=== PATIENT | female | born 1990 | race Caucasian/White ===

== ENCOUNTER 2018-10-02 10:30 | Inpatient (IN) | payer OTHER ==
[2018-10-02] MEDS ORDERED: DEXTROSE 5%-LACTATED RINGERS 500 ML IV SCH ×2 (11:00→12:00)
[2018-10-02] MEDS ORDERED: ELECTROLYTE-148 SOLN 1,000 ML IV SCH (12:45)
--- NOTE | 2018-10-02 12:49 | HP ---
Past Medical History - Admission Chief Complaint: Uterine contractions History of Present Illness: 28yo @ 28.6wks here with uterine contractions q 2-3 mins No VB/LOF. +FM Preg uncomplicated. 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: Alzheimer's, CVA, Dementia, Migraine, Multiple Sclerosis, Peripheral Neuropathy, Parkinson's, Seizure, Syncope, TIA, Vertigo, Other Cardiovascular: No: AFIB, Aneurysm, Aortic Insufficiency, Aortic Stenosis, CAD, CHF, Deep Vein Thrombosis, HTN, Hyperlipdemia, AR, Mitral Insufficiency, Mitral Stenosis, Murmur, Pulmonary Hypertension, Other Pulmonary: No: Asthma, Bronchitis, Cancer, COPD, O2 Dependent, Pneumonia, Previously Intubated, Pulmonary Embolus, Pulmonary Fibrosis, Sleep Apnea, Other Gastrointestinal: No: Ascites, Cancer, Constipation, Crohn's Disease, Diverticulitis, Diverticulosis, Esophageal Varices, Gastritis, GERD, GI Bleed, Hemorrhoids, Hiatal Hernia, Inflamatory Bowel Disease, Irritable Bowel Disease, Pancreatitis, Peptic Ulcer Disease, Ulcerative Colitis, Other ...: 3 ...Para: 1 ...Term: 1 ...: 0 ...Spon : 0 ...Induced : 1 ...LMP: 01/03/18 ... Weeks Gestation by Dates: 38.6 ...EDC by Dates: 10/10/18 ...EDC by Sono: 10/09/18 - Past Surgical History Hx Myomectomy: No Hx Transabdominal Cerclage: No Additional Surgical History: Hemrrhoidectomy x 2 - Advance Directives Advance Directives: Yes: Living Will - Smoking History Smoking history: Never smoked Have you smoked in the past 12 months: No - Alcohol/Substance Use Hx Alcohol Use: No History of Substance Use: reports: None - Social History Usual Living Arrangement: Yes: With Spouse ADL: Independent Home Medications - Allergies Allergies/Adverse Reactions: Allergies Allergy/AdvReac Type Severity Reaction Status Date / Time No Known Allergies Allergy Verified 03/28/18 04:57 - Home Medications Home Medications: Ambulatory Orders NK [No Known Home Medication] 03/28/18 Physical Exam - Maternity Vital Signs: Vital Signs Temperature 98.1 F 10/02/18 11:32 Pulse Rate 121 H 10/02/18 11:32 Respiratory Rate 20 10/02/18 11:32 Blood Pressure 134/90 10/02/18 11:32 O2 Sat by Pulse Oximetry (%) Assessment/Plan 28yo @ 38.6wks here in labor. Initially presented and was 1-2cm, after 1 hour of ambulation, now 4-5cm Admit to L&D Ice chips, IVFs Cat I tracing Labs ordered Discussed epidural or stadol x 1 for pain, pt requested epidural AROM after comfortable, pitocin prn Anticipate Barbi Ryan MD
[2018-10-02 13:04] LABS: BASO % 0.7 % (0-2.0); EOS % 0.7 % (0-4.5); HEMOGLOBIN 12.5 GM/dL (10.7-15.3); LYMPH % 16.8 % (8-40); MCH 30.8 pg (25.7-33.7); MCHC 34.6 g/dl (32.0-36.0); MEAN CELL VOLUME 88.8 fl (80-96); MEAN PLT VOLUME 9.3 fl (7.5-11.1); MONO % 8.9 % (3.8-10.2); NEUT % 72.9 % (42.8-82.8); PLATELET COUNT 273 K/MM3 (134-434); RBC 4.06 M/mm3 (3.60-5.2); RDW 13.9 % (11.6-15.6); WHITE BLOOD COUNT 13.9 K/mm3 (4.0-10.0)
[2018-10-02 13:11] VITALS: BMI 32.9
[2018-10-02 13:35] LABS: ANION GAP 8 MMOL/L (8-16); BLOOD UREA NITROGEN 5 mg/dL (7-18); CALCIUM 8.9 mg/dL (8.5-10.1); CHLORIDE 105 mmol/L (98-107); CO2 22 mmol/L (21-32); CREATININE 0.6 mg/dL (0.55-1.3); GLUCOSE,RANDOM 93 mg/dL (74-106); POTASSIUM 3.9 mmol/L (3.5-5.1); SODIUM 135 mmol/L (136-145)
[2018-10-02] MEDS ORDERED: BUTORPHANOL TARTRATE 1 MG/ML VIAL IVPB ONE (13:39)
--- NOTE | 2018-10-02 13:39 | PN ---
Progress Note, Labor Vaginal Exam #1 Labor Exam Date: 10/02/18 Labor Exam Time: 13:38 Heart Rate (range): Cat I Dilatation: 6 Effacement (%): 100 Amniotic Membrane Status: Intact Presentation: Vertex/Position Station: -2 Remarks: More uncomfortable with ctx. Still intact Awaiting epidural, however anesthesia currently in the OR Discussed stadol x 1 now, pt amenable
[2018-10-02] MEDS ORDERED: PROMETHAZINE HCL 25 MG/1 ML VIAL IVPB ONE (13:40)
[2018-10-02 13:53] LABS: INR 0.96 (0.83-1.09); PROTHROMBIN TIME (PATIENT) 11.3 SEC (9.7-13.0)
[2018-10-02 13:56] LABS: ACTIVATED PTT 27.4 SECONDS (25.2-36.5)
--- NOTE | 2018-10-02 14:06 | PN ---
Progress Note, Labor Vaginal Exam #2 Labor Exam Date: 10/02/18 Labor Exam Time: 14:05 Heart Rate (range): Cat I Dilatation: 6 Effacement (%): 80 Amniotic Membrane Status: Ruptured Presentation: Vertex/Position Station: -2 Remarks: Pt comfortable s/p stadol AROM, clears Anticipate
[2018-10-02] MEDS ORDERED: OXYTOCIN 20 UNITS in 0.9% NS 20 UNIT/1,000 ML INFUS.BAG IV ONE (14:10)
[2018-10-02] MEDS ORDERED: NALOXONE HCL 0.4 MG/ML VIAL IVPUSH PRN (14:12)
[2018-10-02] MEDS ORDERED: FENTANYL/BUPIVACAINE/NS/PF - PCEA - 50 ML DISP.SYRIN EP SCH (14:15)
--- NOTE | 2018-10-02 15:07 | PN ---
Progress Note, Labor Vaginal Exam #3 Labor Exam Date: 10/02/18 Labor Exam Time: 14:55 Heart Rate (range): Cat I Dilatation: 8-9 Effacement (%): 100 Amniotic Membrane Status: Ruptured Presentation: Vertex/Position Station: 0 Remarks: Pt complaining of increased pain and some pressure Now 8-9cm Anticipate soon
[2018-10-02] MEDS ORDERED: METHYLERGONOVINE MALEATE 0.2 MG/1 ML AMP IM PRN (15:36)
[2018-10-02] MEDS ORDERED: WITCH HAZEL 50% (TUCKS) 40 PAD/JAR PAD TP PRN ×2 (15:36→15:40)
[2018-10-02] MEDS ORDERED: BENZOCAINE 28 GM HEMORRHOIDAL OINTMENT TP PRN (15:36)
[2018-10-02] MEDS ORDERED: BENZOCAINE 20% 57 GM BOTTLE TP PRN (15:36)
--- NOTE | 2018-10-02 15:37 | PN ---
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 39week gestation. No anesthesia. Spontaneous delivery of anterior shoulder. Infant placed on maternal abdomen. Cord clamped and cut after 2 minutes. Apgars 9/9. Weight pending. Spontaneous delivery of intact placenta with 3VC. Fundus firm. EBL 200ml. Mother and baby doing well. Barbi Ryan MD
[2018-10-02] MEDS ORDERED: PHENYLEPHRINE 0.25%/STARCH 1 EACH SUPP.RECT RC PRN (15:38)
[2018-10-02] MEDS ORDERED: ACETAMINOPHEN 325 MG TABLET (FP) ONE (15:43)
[2018-10-02] MEDS ORDERED: IBUPROFEN 600 MG TABLET (FP) PO ONE (15:43)
[2018-10-02] MEDS: ACETAMINOPHEN 325 MG TABLET (FP) PO PRN ×2 (15:45→20:04)
[2018-10-02] MEDS: IBUPROFEN 600 MG TABLET (FP) PO PRN ×3 (15:45→23:37)
[2018-10-02] MEDS ORDERED: OXYTOCIN 20 UNITS in 0.9% NS 20 UNIT/1,000 ML INFUS.BAG IV SCH (15:45)
[2018-10-02] MEDS: HYDROCORTISONE 2.5% TOPICAL CREAM 30 GM TUBE PR PRN ×2 (18:05→20:00)
[2018-10-02] MEDS: SENNOSIDES/DOCUSATE COMBO (SENNA PLUS) TABLET (UD) PO PRN (20:05)
[2018-10-03] MEDS: IBUPROFEN 600 MG TABLET (FP) PO PRN ×3 (04:17→16:13)
[2018-10-03] MEDS: ACETAMINOPHEN 325 MG TABLET (FP) PO PRN (04:17)
[2018-10-03 08:29] LABS: BASO % 0.4 % (0-2.0); EOS % 0.8 % (0-4.5); HEMOGLOBIN 11.2 GM/dL (10.7-15.3); LYMPH % 24.6 % (8-40); MCH 30.9 pg (25.7-33.7); MCHC 34.8 g/dl (32.0-36.0); MEAN CELL VOLUME 88.8 fl (80-96); MEAN PLT VOLUME 9.5 fl (7.5-11.1); MONO % 9.2 % (3.8-10.2); PLATELET COUNT 243 K/MM3 (134-434); RBC 3.61 M/mm3 (3.60-5.2); RDW 13.8 % (11.6-15.6); WHITE BLOOD COUNT 13.3 K/mm3 (4.0-10.0)
[2018-10-03] MEDS: PRENATAL VITAMINS W/ FOLIC ACID TABLET (FP) PO SCH ×2 (08:48→11:59)
--- NOTE | 2018-10-03 09:27 | PN ---
Post Progress Note - Subjective Subjective: No acute events o/n. C/O hemorrhoid pain still. Taking Motrin q4 hrs Type of Delivery: Vital Signs: Vital Signs Temperature 97.8 F 10/03/18 06:00 Pulse Rate 90 10/03/18 06:00 Respiratory Rate 18 10/03/18 06:00 Blood Pressure 127/75 10/03/18 06:00 O2 Sat by Pulse Oximetry (%) 100 10/02/18 16:36 Incision: Yes: Dressing dry and intact Abdomen/GI: Yes: Abdomen soft Lochia, amount: Small Extremities: Yes: Calves non-tender Perineum: Yes: Intact Activity: Ambulating - Labs Labs: CBC WBC 13.3 K/mm3 (4.0-10.0) H 10/03/18 06:30 RBC 3.61 M/mm3 (3.60-5.2) 10/03/18 06:30 Hgb 11.2 GM/dL (10.7-15.3) 10/03/18 06:30 Hct 32.0 % (32.4-45.2) L 10/03/18 06:30 MCV 88.8 fl (80-96) 10/03/18 06:30 MCH 30.9 pg (25.7-33.7) 10/03/18 06:30 MCHC 34.8 g/dl (32.0-36.0) 10/03/18 06:30 RDW 13.8 % (11.6-15.6) 10/03/18 06:30 Plt Count 243 K/MM3 (134-434) 10/03/18 06:30 MPV 9.5 fl (7.5-11.1) 10/03/18 06:30 Absolute Neuts (auto) 8.7 K/mm3 (1.5-8.0) H 10/03/18 06:30 Neutrophils % 65.0 % (42.8-82.8) 10/03/18 06:30 Lymphocytes % 24.6 % (8-40) D 10/03/18 06:30 Monocytes % 9.2 % (3.8-10.2) 10/03/18 06:30 Eosinophils % 0.8 % (0-4.5) 10/03/18 06:30 Basophils % 0.4 % (0-2.0) 10/03/18 06:30 Nucleated RBC % 0 % (0-0) 10/03/18 06:30 Assessment/Plan 28yo s/p , PPD#1 Routine PP care OOB ambulate Discussed decreasing meds to prn Continue meds for hemrrhoids, will likely need surgical intervention again in future if peristent D/C to home on PPD#2 Barbi Ryan MD
[2018-10-03] MEDS: SENNOSIDES/DOCUSATE COMBO (SENNA PLUS) TABLET (UD) PO PRN (22:15)
[2018-10-03 22:52] VITALS: TEMP 98.2
[2018-10-04] MEDS: IBUPROFEN 600 MG TABLET (FP) PO PRN (01:18)
[2018-10-04] MEDS: ACETAMINOPHEN 325 MG TABLET (FP) PO PRN (01:18)
[2018-10-04 07:59] VITALS: BP 122/81; PULSE 82
--- NOTE | 2018-10-04 08:15 | DS ---
Physical Exam-[employer] [facility] Vital Signs: Vital Signs Temperature 98.2 F 10/04/18 07:15 Pulse Rate 82 10/04/18 07:15 Respiratory Rate 18 10/04/18 07:15 Blood Pressure 122/81 10/04/18 07:15 O2 Sat by Pulse Oximetry (%) 100 10/02/18 16:36 Constitutional: Yes: Well Nourished Eyes: Yes: Conjunctiva Clear HENT: Yes: Atraumatic Neck: Yes: Supple Cardiovascular: Yes: Regular Rate and Rhythm Respiratory: Yes: Regular Gastrointestinal: Yes: Normal Bowel Sounds ...Rectal Exam: Yes: WNL Renal/: Yes: WNL Pelvis: Yes: WNL External Genitalia: Yes: Normal Vaginal Exam: Yes: Normal Cervix: Yes: Normal Uterus: Yes: Firm ....Post : Yes: Uterus firm Breast(s): Yes: WNL Musculoskeletal: Yes: WNL Extremities: Yes: WNL Neurological: Yes: Alert, Oriented ...Motor Strength: WNL Psychiatric: Yes: Alert, Oriented Labs: CBC, BMP 10/03/18 06:30 10/02/18 12:40 Delivery - Delivery Vaginal Delivery: Spontaneous Type of Anesthesia: None Episiotomy/Laceration: None EBL (cc): 200 Delivery, Single - Stages of Labor Date 1st Stage Initiatied: 10/02/18 Time 1st Stage Initiated: 05:00 Date 2nd Stage Initiated: 10/02/18 Time 2nd Stage Initiated: 15:14 Date of Delivery: 10/02/18 Time of Delivery: 15:24 Time Placenta Delivered: 15:30 Placenta: Yes: Spontaneous - Condition of Infant Rn Telemetry/Lead Scientist Present: No Gender: Male Weight: 7 lb Position: Left, OA Total Hours ROM (Hrs/Mins): 1HR 30MIN - 5 Minutes Total Score: 9 1 Minute Total Score: 9 - Feeding Plan Initial Plan: Elected not to breastfeed exclusively throughout hospitalization Discharge Summary Reason For Visit: LABOR Procedures: Principal: Normal spontaneous vaginal delivery Hospital Course: Routine care Condition: Good - Instructions Diet, Activity, Other Instructions: Regular diet If fever, pain, or heavy bleeding, call M.D. Call [facility] and make appt. to be seen in 4 to 6 weeks. [phone] Referrals: Barbi Ryan MD [Staff Physician] - Disposition: HOME - Home Medications Comprehensive Discharge Medication List: Ambulatory Orders Docusate Sodium [Colace] 100 mg PO BID 10/02/18 Ferrous Sulfate [Feosol] 325 mg PO DAILY 10/02/18 Pnv No.95/Ferrous Fum/Folic AC [ Vitamin Tablet] 1 each PO DAILY Hydrocortisone 2.5% Topical Cr [Anusol 2.5% Hc Cream -] 1 applic RC BID #1 tube 10/03/18 Ibuprofen 600 mg PO Q6H PRN #30 tablet 10/03/18
[2018-10-04] MEDS: PRENATAL VITAMINS W/ FOLIC ACID TABLET (FP) PO SCH (09:04)
[2018-10-04] MEDS ORDERED: DIPHTH,PERTUSS(ACELL),TET 0.5 ML DISP.SYRIN IM ONE (10:00)
== END 2018-10-04 13:15 | disposition home or self-care (01) | DRG 560 ==
LOC: JDEL 10:30 → JLDR 12:30 → J3W 16:51
PROVIDERS: ADMIT Obstetrics & Gynecology; ATTEND Obstetrics & Gynecology
PROC: 10E0XZZ Delivery of Products of Conception, External Approach (ICD-10-PCS; principal; 2018-10-02)
DX: O80 Encounter for full-term uncomplicated delivery (principal); Z3A.39 39 weeks gestation of pregnancy; Z37.0 Single live birth
CPT/HCPCS: 36415; 59025; 59409; 80048; 85025; 85610; 85730; 86593; 86850; 86900; 86901; 90715

== ENCOUNTER 2018-11-03 19:15 | Emergency (ER) | payer OTHER ==
--- NOTE | 2018-11-03 19:38 | PDOC ---
Rapid Medical Evaluation Chief Complaint: Vaginal Bleeding Medical Evaluation: Allergies Allergy/AdvReac Type Severity Reaction Status Date / Time No Known Allergies Allergy Verified 10/02/18 15:44 11/03/18 19:32 I have performed a brief in-person evaluation of this patient. The patient presents with a chief complaint of:post 1 month ago , stopped bleeding then after 8days has restarted vag bleeding 4 days ago with now chaNGING pads every hour. Now feels headache, weakness. Discussed with [employer] 2 days ago. no changes. Pertinent physical exam findings: pale, abd soft I have ordered the following: CBC, CMP, UA The patient will proceed to the ED for further evaluation. Discharge Disposition - Diagnosis Vagina bleeding - Referrals - Patient Instructions - Post Discharge Activity
[2018-11-03 19:39] VITALS: BMI 28.6
--- NOTE | 2018-11-03 21:00 | PDOC ---
History of Present Illness - General Chief Complaint: Vaginal Bleeding Stated Complaint: HEAVY BLEEDING SINCE [place] 4 Time Seen by Provider: 11/03/18 20:51 - History of Present Illness Initial Comments: 11/03/18 20:55 28 yo F with recent vaginal delivery (10/05/18) 39 wga, who p/w vaginal bleeding. Patient reports ongoing vaginal bleeding, with absent clotting beginning 10/31/18. Bleeding progressively increased in quantity. Now reports pad changes every 2 hours, with blood soaked pads. Patient [place] [address] Patient denies vision change, palpitations, cough, wheezing, N/V, F,C, CP, SOB, urinary complaints, abdominal pain, pelvic pain, vaginal discharge/irritation, diarrhea, constipation, BPR, hematuria, lightheadedness, weakness, sensory changes. 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 Sexually active with spouse. Allergies: NKDA Past History - Past Medical History Allergies/Adverse Reactions: Allergies Allergy/AdvReac Type Severity Reaction Status Date / Time No Known Allergies Allergy Verified 10/02/18 15:44 Home Medications: Ambulatory Orders Docusate Sodium [Colace] 100 mg PO BID 10/02/18 Ferrous Sulfate [Feosol] 325 mg PO DAILY 10/02/18 Pnv No.95/Ferrous Fum/Folic AC [ Vitamin Tablet] 1 each PO DAILY Hydrocortisone 2.5% Topical Cr [Anusol 2.5% Hc Cream -] 1 applic RC BID #1 tube 10/03/18 Ibuprofen 600 mg PO Q6H PRN #30 tablet 10/03/18 Asthma: No Cancer: No Cardiac Disorders: No Diabetes: No HTN: No Seizures: No Thyroid Disease: No - Suicide/Smoking/Psychosocial Hx Smoking History: Never smoked Have you smoked in the past 12 months: No Hx Alcohol Use: No Drug/Substance Use Hx: No Hx Substance Use Treatment: No Review of Systems - Review of Systems Comments:: 11/03/18 20:59 GENERAL/CONSTITUTIONAL: No fever or chills. No weakness. HEAD, EYES, EARS, NOSE AND THROAT: No change in vision. No ear pain or discharge. No sore throat. CARDIOVASCULAR: No chest pain or shortness of breath RESPIRATORY: No cough, wheezing, or hemoptysis. GASTROINTESTINAL: No nausea, vomiting, diarrhea or constipation. GENITOURINARY: No dysuria, frequency, or change in urination. MUSCULOSKELETAL: No joint or muscle swelling or pain. No neck or back pain. SKIN: No rash NEUROLOGIC: No headache, vertigo, loss of consciousness, or change in strength/ sensation. ENDOCRINE: No increased thirst. No abnormal weight change HEMATOLOGIC/LYMPHATIC: No anemia, easy bleeding, or history of blood clots. ALLERGIC/IMMUNOLOGIC: No hives or skin allergy. *Physical Exam - Vital Signs Last Vital Signs Temp Pulse Resp BP Pulse Ox 98.1 F 67 20 126/77 98 11/03/18 19:28 11/03/18 19:28 11/03/18 19:28 11/03/18 19:28 11/03/18 19:28 - Physical Exam Comments: 11/03/18 20:59 GENERAL: Awake, alert, and fully oriented, in no acute distress HEAD: No signs of trauma, normocephalic, atraumatic EYES: PERRLA, EOMI, sclera anicteric, conjunctiva clear ENT: Auricles normal inspection, hearing grossly normal, nares patent, oropharynx clear without exudates. Moist mucosa NECK: Normal ROM, supple, no lymphadenopathy, JVD, or masses LUNGS: No distress, speaks full sentences, clear to auscultation bilaterally HEART: Regular rate and rhythm, normal S1 and S2, no murmurs, rubs or gallops, peripheral pulses normal and equal bilaterally. ABDOMEN: Soft, nontender, normoactive bowel sounds. No guarding, no rebound. No masses PELVIC: Nml appearing external genitalia. + blood in vaginal vault. Asbent pooling, clotting. Cervical os closed. Neg CMT on BM. Neg adenexal ttp. EXTREMITIES : Normal inspection, Normal range of motion, no edema. No clubbing or cyanosis. NEUROLOGICAL: Cranial nerves II through XII grossly intact. Normal speech, normal gait, no focal sensorimotor deficits SKIN: Warm, Dry, normal turgor, no rashes or lesions noted Moderate Sedation - Procedure Monitoring Vital Signs: Procedure Monitoring Vital Signs Temperature 98.1 F 11/03/18 19:28 Pulse Rate 67 11/03/18 19:28 Respiratory Rate 20 11/03/18 19:28 Blood Pressure 126/77 11/03/18 19:28 O2 Sat by Pulse Oximetry (%) 98 02/07/19 19:28 ED Treatment Course - LABORATORY CBC & Chemistry Diagram: 11/03/18 21:05 11/03/18 21:05 Medical Decision Making - Medical Decision Making 11/03/18 21:04 28 yo F with recent vaginal delivery (10/05/18) 39 wga, who p/w vaginal bleeding. Patient reports ongoing vaginal bleeding, with absent clotting beginning 10/31/18. Vitals wnl, AF, A&Ox3. Physical exam unremarkable. Will consider related vaginal bleeding, vs. retained POC, AUB, leiomoyoma. ED Course: 11/03/18 23:03 CBC: Unremarkable UA: 3+ blood, 2513 11/03/18 23:57 Patient desires to sign out AMA Expressed understanding of risks of signing out before full medical evaluation Patient understands to f/u with computer networker 11/04/18 00:14 Patient signs out AMA *DC/Admit/Observation/Transfer Diagnosis at time of Disposition: Vagina bleeding - Discharge Dispostion Disposition: AGAINST MEDICAL ADVICE Condition at time of disposition: Stable Decision to Admit order: No - Referrals Referrals: Barbi Ryan MD [Primary Care Provider] - - Patient Instructions Printed Discharge Instructions: DI for Abnormal Uterine Bleeding Additional Instructions: Please return to the emergency department with any new or worsening symptoms or concerns. Please follow up with your primary care physician within 72 hours. As discussed you may have undiagnosed illness or medical diagnosis that if left untreated can lead to multiple complications including, but not limited to permanent disability and . Should you reconsider you should turn to the emergency department for evaluation. - Post Discharge Activity - Attestations Physician Attestion: 11/03/18 21:00 I attest to the information provided in this note.
--- NOTE | 2018-11-03 21:27 | PDOC ---
Attending Attestation - HPI HPI: 11/03/18 22:06 The patient is a 28 year old female with a significant past medical history of recent vaginal deliver on (10/05/2018), who presents to the emergency department today with vaginal bleeding s/p which was intermittent until (10/30/2018 ) when it began to progressively get heavier, causing her to change her pad every 2 hours that are completely saturated. Patient denies abdominal/pelvic pain. Patient notes a headache. The patient denies chest pain, shortness of breath and dizziness. Denies fever, chills, nausea, vomit, diarrhea and constipation. Denies dysuria, frequency, urgency and hematuria. Allergies: NKA Social history: None reported PCP: Dr. Ryan - Physicial Exam PE: 11/03/18 22:06 Agree with resident's exam. <Silvia Castro - Last Filed: 11/03/18 22:06> - Resident Resident Name: Jeyson Houston - ED Attending Attestation I have performed the following: I have examined & evaluated the patient, The case was reviewed & discussed with the resident, I agree w/resident's findings & plan - Medical Decision Making 11/04/18 04:15 28-year-old female with bleeding status post vaginal delivery several weeks ago Unfortunately patient chose to sign out AGAINST MEDICAL ADVICE before results were available <Jenniffer Ramírez - Last Filed: 11/04/18 04:16> Attestations - Attestations 11/03/18 22:07 Documentation prepared by Silvia Castro, acting as medical records clerk for Jenniffer Ramírez DO. <Silvia Castro - Last Filed: 11/03/18 22:06>
[2018-11-03] MEDS ORDERED: ACETAMINOPHEN 325 MG TABLET (FP) PO ONE (22:10)
[2018-11-03 22:24] LABS: BASO % 0.7 % (0-2.0); EOS % 4.2 % (0-4.5); HEMATOCRIT 40.4 % (32.4-45.2); HEMOGLOBIN 13.6 GM/dL (10.7-15.3); MCH 30.7 pg (25.7-33.7); MCHC 33.8 g/dl (32.0-36.0); MEAN CELL VOLUME 90.9 fl (80-96); MEAN PLT VOLUME 9.6 fl (7.5-11.1); MONO % 10.5 % (3.8-10.2); NEUT % 44.6 % (42.8-82.8); PLATELET COUNT 279 K/MM3 (134-434); RBC 4.44 M/mm3 (3.60-5.2); RDW 13.5 % (11.6-15.6); WHITE BLOOD COUNT 7.9 K/mm3 (4.0-10.0)
[2018-11-03] MEDS ORDERED: ACETAMINOPHEN 325 MG TABLET (FP) ONE ×2 (22:38→23:03)
[2018-11-03 23:14] LABS: URINE APPEARANCE CLOUDY; URINE BILIRUBIN NEGATIVE (<2.0 mg/dL); URINE COLOR RED; URINE GLUCOSE (UA) NEGATIVE (NEGATIVE); URINE KETONE NEGATIVE (NEGATIVE); URINE LEUK ESTERASE NEGATIVE (NEGATIVE); URINE NITRITE NEGATIVE (NEGATIVE); URINE PROTEIN 2+ (NEGATIVE); URINE UROBILINOGEN NEGATIVE mg/dL (0.2-1.0)
[2018-11-03 23:21] LABS: URINE MUCUS RARE; YEAST FEW
[2018-11-04 00:25] VITALS: BP 124/72; PULSE 68; TEMP 98.2
== END 2018-11-04 00:20 | disposition left against medical advice (07) ==
LOC: JER 19:15
DX: O90.89 Other complications of the puerperium, not elsewhere classified (principal); O72.2 Delayed and secondary postpartum hemorrhage
CPT/HCPCS: 36415; 76830-TC; 80053; 81003; 81015; 84703; 85025; 99282-25